=== PATIENT | female | born 1975 | race Caucasian/White ===

== ENCOUNTER → 2017-02-15 | Outpatient (CLI) | payer BC | END | disposition home or self-care (01) | LOC: RAD.S 13:02 | DX: Z80.3 Family history of malignant neoplasm of breast (principal); N63 Unspecified lump in breast ==

== ENCOUNTER → 2017-02-19 | Outpatient (CLI) | payer BC | END | disposition home or self-care (01) | LOC: RAD.S 13:45 | DX: R92.8 Other abnormal and inconclusive findings on diagnostic imaging of breast (principal) ==